=== PATIENT | male | born 1960 | race Two or more races ===

== ENCOUNTER 2016-06-24 10:11 | Emergency (ER) | payer SELFPAY ==
[2016-06-24] MEDS ORDERED: PREDNISONE 20 MG TABLET ONE (11:57)
== END 2016-06-24 12:15 | disposition home or self-care (01) ==
LOC: ED 10:11
DX: K12.0 Recurrent oral aphthae (principal); K08.89 Other specified disorders of teeth and supporting structures
CPT/HCPCS: 99283 ×2; J7512